=== PATIENT | female | born 1970 | race Two or more races ===

== ENCOUNTER 2022-12-27 07:22 | Emergency (ER) | payer OTHER ==
[~2022-12-27] VITALS: Ht 157.5 cm; Wt 54.9 kg
[2022-12-27] MEDS ORDERED: [UNRECOGNIZED DRUG - OTHER] PO (07:42)
== END 2022-12-27 09:19 ==
LOC: ER 07:22
DX: S50.311A Abrasion of right elbow, initial encounter (principal); W18.39XA Other fall on same level, initial encounter; Y93.02 Activity, running; Y92.413 State road as the place of occurrence of the external cause; Z88.6 Allergy status to analgesic agent; K51.80 Other ulcerative colitis without complications; F32.89 Other specified depressive episodes